=== PATIENT | female | born 1945 | race Caucasian/White ===

== ENCOUNTER 2023-10-13 06:10 | Day surgery (SDC) | payer MEDICARE ==
[2023-10-12 15:35] VITALS: BMI 21.6
[~2023-10-13 06:10] MED LIST: EPINEPHrine 0.3 MG in Ophthalmic Irrigation Solution 500 ML IRR SCH
[2023-10-13] MEDS ORDERED: Cyclopentolate W/ Phenylephrin 40 DROP/2 ML BOT ONE (06:40)
[2023-10-13] MEDS ORDERED: PROPOFOL 20 ML ONE (07:13)
[2023-10-13] MEDS ORDERED: Midazolam HCl 2 mg/2 ml Vial ONE (07:14)
[2023-10-13] MEDS ORDERED: fentaNYL 50 mcg/mL 1 mL Vial ONE (07:14)
[2023-10-13 07:51] LABS: Anion Gap 14 mmol/L (10-20); BUN (Urea Nitrogen) 15 mg/dL (9.8-20.1); Calc. Creatinine Clearance 54 mL/min (70-130); Carbon Dioxide 25 mmol/L (23-31); Chloride 100 mmol/L (98-107); Estimated GFR 71; Glucose 84 mg/dL (83-110); Potassium 3.6 mmol/L (3.5-5.1); Sodium 135 mmol/L (136-145)
== END 2023-10-13 09:06 | disposition home or self-care (01) ==
LOC: SDC 06:10
PROVIDERS: ATTEND Ophthalmology Retina Specialist
PROC: 089530Z Drainage of Left Vitreous with Drainage Device, Percutaneous Approach (ICD-10-PCS; principal; 2023-10-13)
DX: H35.372 Puckering of macula, left eye (principal)
CPT/HCPCS: 67041; 80048; 93005; J3010; 93010; J0171; J2250; J2704